=== PATIENT | male | born 1955 | race Caucasian/White ===

== ENCOUNTER → 2017-10-09 | Outpatient (CLI) | payer OTHER ==
[2017-10-09 10:17] LABS: ADD MAN DIFF? NO
[2017-10-09 10:24] LABS: BASO % 1 % (0-3); EOS # 0.1 x10^3/uL (0.0-0.7); EOS % 3 % (0-3); HEMATOCRIT 42.2 % (39.0-53.0); HEMOGLOBIN 14.8 g/dL (13.0-17.5); LYMPH # 1.9 x10^3/uL (1.0-4.8); LYMPH % 34 % (24-48); MEAN CORPUSCULAR HEMOGLOBIN 38 pg (25-35); MEAN CORPUSCULAR HGB CONC 35 g/dL (31-37); MONO # 0.4 x10^3/uL (0.0-1.1); MONO % 8 % (0-9); NEUT % 55 % (31-73); PLATELET COUNT 180 x10^3/uL (140-400); RED CELL DISTRIBUTION WIDTH 12.8 % (11.5-14.5); WHITE BLOOD COUNT 5.5 x10^3/uL (4.0-11.0)
[2017-10-09 10:30] LABS: MEAN CORPUSCULAR VOLUME 106 fL (79-100)
[2017-10-09 10:52] LABS: ALBUMIN 3.9 g/dL (3.4-5.0); ALBUMIN/GLOBULIN RATIO 1.1 (1.0-1.7); ALK PHOS 88 U/L (46-116); ALT (SGPT) 38 U/L (16-63); ANION GAP 6 (6-14); AST (SGOT) 31 U/L (15-37); BLOOD UREA NITROGEN 15 mg/dL (8-26); BUN/CREATININE RATIO 19 (6-20); CALCIUM 8.7 mg/dL (8.5-10.1); CARBON DIOXIDE 30 mmol/L (21-32); CHLORIDE 106 mmol/L (98-107); CHOLESTEROL 178 mg/dL (0-200); CREATININE 0.8 mg/dL (0.7-1.3); GLUCOSE 111 mg/dL (70-99); HDLC 88 mg/dL (40-60); LDLC 68 mg/dL (0-100); NON-HDL CHOLESTEROL 90 mg/dL (0-129); POTASSIUM 4.5 mmol/L (3.5-5.1); SODIUM 142 mmol/L (136-145); TOTAL BILIRUBIN 0.7 mg/dL (0.2-1.0); TOTAL PROTEIN 7.4 g/dL (6.4-8.2); TRIGLYCERIDES 110 mg/dL (0-150); VLDLC 22 mg/dL (0-40)
[2017-10-09 12:31] LABS: PROSTATE SPECIFIC ANTIGEN 0.33 ng/mL (0.00-4.00)
== END | disposition home or self-care (01) ==
LOC: LAB 10:08
DX: Z12.5 Encounter for screening for malignant neoplasm of prostate (principal); E78.5 Hyperlipidemia, unspecified
CPT/HCPCS: 36415; 80053; 80061; 85025; G0103

== ENCOUNTER → 2018-05-21 | Outpatient (CLI) | payer OTHER ==
[2018-05-21 10:32] LABS: ALBUMIN 3.4 g/dL (3.4-5.0); ALBUMIN/GLOBULIN RATIO 0.9 (1.0-1.7); CALCIUM 9.3 mg/dL (8.5-10.1); CREATININE 0.7 mg/dL (0.7-1.3); GFR 113.9; POTASSIUM 4.2 mmol/L (3.5-5.1); TOTAL BILIRUBIN 0.4 mg/dL (0.2-1.0); TOTAL PROTEIN 7.1 g/dL (6.4-8.2)
[2018-05-21 10:36] LABS: BASO # 0.1 x10^3/uL (0.0-0.2); BASO % 1 % (0-3); EOS # 0.2 x10^3/uL (0.0-0.7); EOS % 3 % (0-3); HEMATOCRIT 41.3 % (39.0-53.0); HEMOGLOBIN 14.7 g/dL (13.0-17.5); LYMPH # 1.8 x10^3/uL (1.0-4.8); LYMPH % 34 % (24-48); MEAN CORPUSCULAR HEMOGLOBIN 38 pg (25-35); MEAN CORPUSCULAR HGB CONC 36 g/dL (31-37); MEAN CORPUSCULAR VOLUME 108 fL (79-100); MONO # 0.4 x10^3/uL (0.0-1.1); MONO % 9 % (0-9); NEUT # 2.8 x10^3uL (1.8-7.7); NEUT % 53 % (31-73); PLATELET COUNT 193 x10^3/uL (140-400); RED BLOOD COUNT 3.84 x10^6/uL (4.30-5.70); RED CELL DISTRIBUTION WIDTH 12.7 % (11.5-14.5); WHITE BLOOD COUNT 5.2 x10^3/uL (4.0-11.0)
[2018-05-21 10:39] LABS: CHOLESTEROL/HDL RATIO 1.9
== END | disposition home or self-care (01) ==
LOC: LAB 09:37
PROVIDERS: ATTEND Internal Medicine
DX: E78.5 Hyperlipidemia, unspecified (principal); N52.9 Male erectile dysfunction, unspecified; R63.4 Abnormal weight loss
CPT/HCPCS: 80053; 80061; 84443; 85025; 85651

== ENCOUNTER → 2018-06-05 | Day surgery (SDC) | payer OTHER ==
[~2018-06-05] MED LIST: ASPI-630 PO; ATOR40TA59 PO; IV RINGERS,LACTATED 1000ML 1,000 ML IV SCH; PROPOFOL 40 ML IV ONE; PROPOFOL 60 ML IV ONE
[2018-06-05 10:45] VITALS: BP 146/71
--- NOTE | 2018-06-06 16:11 | PATHOLOGY ---
[facility] Accession Number: [id number] . 01 Material submitted: . PART A: SIGMOID POLYP PART B: RANDOM COLON BIOPSY PART C: TRANSVERSE COLON POLYP . 01 Clinical history: . Hx polyps . 02 Diagnosis: A. Colon biopsy, sigmoid polyp: - Tubular adenoma. . B. Colonic mucosa, random colon biopsies: - Collagenous colitis. . C. Colon biopsies, transverse colon polyp: - Tubular adenoma. . (JPM:mml; 06/06/2018) [facility]/06/06/2018 . 02 Comment: Sections of the sigmoid colon biopsy reveal a tubular adenoma showing no high grade dysplasia or evidence of malignancy. . Sections of the random colon biopsy show a mild chronic active colitis without crypt architectural distortion. Collagen is deposited around the absorptive capillary complex beneath the surface epithelium. The findings are supportive of the diagnosis of collagenous colitis. . Sections of the transverse colon biopsy reveal a tubular adenoma showing no high grade dysplasia or evidence of malignancy. . (JPM:mml; 06/06/2018) . 02 Electronically signed: . Ruslan Evans MD, Pathologist NPI- [id number] . 01 Gross description: . A. Received in formalin labeled "Alejandro Kumar, sigmoid polyp," is a single segment of jacinto soft tissue measuring 0.4 cm in maximum dimension. The specimen is entirely submitted in cassette A1. . B. Received in formalin labeled "Alejandro Kumar, random colon BX, diarrhea, rule out colitis," are multiple segments of jacinto soft tissue measuring 1.8 x 0.5 x 0.2 cm in aggregate dimensions. The specimen is filtered and entirely submitted in cassette B1. . C. Received in formalin labeled "Alejandro Kumar, transverse colon polyp," are multiple segments of jacinto soft tissue measuring 1.3 x 0.6 x 0.2 cm in aggregate dimensions. The specimen is filtered and entirely submitted in cassette C1. (TSD; 06/05/2018) TOB/TOB . 02 Pathologist provided ICD-10: D12.5, D12.3, K52.831 . 02 CPT . 274399, 839785, 015759 Specimen Comment: A courtesy copy of this report has been sent to Specimen Comment: [phone], . Specimen Comment: Report sent to / DR NIELSEN Specimen Comment: A duplicate report has been generated due to demographic updates. Performed at: 01 [facility] [address], [place] [id number] MD Aquiles Villalta MD Phone: [phone] Performed at: 02 [facility] [address] [place], [place] [id number] MD Ruslan Evans MD Phone: [phone]
== END | disposition home or self-care (01) ==
LOC: SURG 07:38
PROVIDERS: ATTEND Internal Medicine
DX: D12.5 Benign neoplasm of sigmoid colon (principal); D12.3 Benign neoplasm of transverse colon; K52.831 Collagenous colitis; K21.9 Gastro-esophageal reflux disease without esophagitis; E78.00 Pure hypercholesterolemia, unspecified; Z86.010 Personal history of colon polyps; Z72.89 Other problems related to lifestyle; F17.210 Nicotine dependence, cigarettes, uncomplicated; Z82.49 Family history of ischemic heart disease and other diseases of the circulatory system; Z83.79 Family history of other diseases of the digestive system; Z79.82 Long term (current) use of aspirin; Z79.899 Other long term (current) drug therapy; Z98.52 Vasectomy status; Z98.890 Other specified postprocedural states
CPT/HCPCS: 45380; 45381; 88305; J2704; 45385

== ENCOUNTER → 2018-07-27 | Outpatient (CLI) | payer OTHER ==
[2018-06-05 10:45] VITALS: BP 146/71
[~2018-07-27] MED LIST changes: -IV RINGERS,LACTATED 1000ML 1,000 ML IV SCH; -PROPOFOL 40 ML IV ONE; -PROPOFOL 60 ML IV ONE
--- NOTE | 2018-07-27 09:36 | RAD ---
Cervical spine, 5 views, 08/06/2018: HISTORY: Increasing neck pain C7 was not well visualized in the lateral projection due to the high position of the patient shoulders. There is mild to moderate disc space narrowing at C4-5, C5-6 and C6-7 with mild marginal spurring. There are mild degenerative changes involving scattered facet joints bilaterally. There is mild associated bilateral foraminal narrowing at C4-5 and C5-6. No fracture or subluxation is evident. Moderate calcific plaquing is present at the carotid bifurcations. IMPRESSION: 1. Mild to moderate multilevel degenerative change, greatest at the C4-5 and C5-6 levels. 2. No acute bony abnormality is detected. Electronically signed by: Akhil Levine MD (07/27/2018 9:33 AM) [facility]
== END | disposition home or self-care (01) ==
LOC: RAD 08:40
PROVIDERS: ATTEND Internal Medicine
DX: M47.812 Spondylosis without myelopathy or radiculopathy, cervical region (principal); M48.02 Spinal stenosis, cervical region
CPT/HCPCS: 72050

== ENCOUNTER → 2018-08-21 | Day surgery (SDC) | payer OTHER ==
[~2018-08-21] MED LIST changes: +IV RINGERS,LACTATED 1000ML 1,000 ML IV SCH; +LIDOCAINE 2% PF 5 ML VIAL. ONE; +PROPOFOL 40 ML IV ONE
[2018-08-21 09:45] VITALS: BP 120/79
--- NOTE | 2018-08-22 15:07 | PATHOLOGY ---
[facility] Accession Number: [id number] . 01 Material submitted: . PART A: ASCENDING POLYP PART B: POST POLYPECTOMY AREA BX PART C: SIGMOID POLYP PART D: DISTAL SIGMOID BIOPSY . 01 Clinical history: . History of polyps . 02 Diagnosis: A. Colon biopsies, ascending colon polyp: - Tubular adenoma. . B. Colon biopsies, post polypectomy area biopsy: - Tubular adenoma, focal. . C. Colon biopsies, sigmoid polyp: - Tubular adenomas. . D. Colon biopsy, distal sigmoid colon: - No significant pathologic abnormalities. . (JPM:mml; 08/22/2018) [facility]/08/22/2018 . 02 Comment: Sections of the ascending colon biopsy reveal a tubular adenoma showing no high grade dysplasia or evidence of malignancy. Sections of the post polypectomy area biopsy reveal focal residual tubular adenoma. There is no high grade dysplasia or evidence of malignancy. Sections of the sigmoid colon biopsy reveal tubular adenomas showing no high grade dysplasia or evidence of malignancy. Sections of the distal sigmoid colon biopsy show congestion and focal recent hemorrhage. There is no evidence of a chronic destructive colitis, ischemic colitis, or microscopic colitis. . (JPM:mml; 08/22/2018) . 02 Electronically signed: . Ruslan Evans MD, Pathologist NPI- [id number] . 01 Gross description: . A. The specimen is received in formalin, labeled "Alejandro Kumar, ascending polyp", are multiple jacinto soft tissues measuring 0.7 x 0.5 x 0.2 cm in aggregate, entirely submitted in A1. . B. The specimen is received in formalin, labeled "Alejandro Kumar, post-polypectomy area, biopsy", are multiple jacinto, mucosal fragments measuring 0.5 x 0.5 x 0.1 cm in aggregate, entirely submitted in B1. . C. The specimen is received in formalin, labeled "Bernake, Alejandro, sigmoid polyp", are 2 jacinto soft tissues measuring 0.7 x 0.3 x 0.2 cm in aggregate, entirely submitted in C1. . D. The specimen is received in formalin, labeled "Yuetzke, Alejandro, distal sigmoid, biopsy", is a jacinto, mucosal tissue measuring 0.3 cm in greatest dimension, entirely submitted in D1. ([facility]; 08/21/2018) [facility] . 02 Pathologist provided ICD-10: D12.2, D12.6, D12.5 . 02 CPT . 078249, 094706, 993747, 452242 Specimen Comment: A courtesy copy of this report has been sent to Specimen Comment: [phone], . Specimen Comment: Report sent to / DR NILESEN Performed at: 01 [facility] [address] [facility] [address], [place] [id number] MD Aquiles Villalta MD Phone: [phone] Performed at: 02 [facility] [address] [place], [place] [id number] MD Ruslan Evans MD Phone: [phone]
== END | disposition home or self-care (01) ==
LOC: SURG 07:07
PROVIDERS: ATTEND Internal Medicine
DX: Z09 Encounter for follow-up examination after completed treatment for conditions other than malignant neoplasm (principal); D12.2 Benign neoplasm of ascending colon; D12.5 Benign neoplasm of sigmoid colon; Z86.010 Personal history of colon polyps; K63.89 Other specified diseases of intestine; K21.9 Gastro-esophageal reflux disease without esophagitis; E78.00 Pure hypercholesterolemia, unspecified; Z83.79 Family history of other diseases of the digestive system; Z72.89 Other problems related to lifestyle; Z79.82 Long term (current) use of aspirin; Z79.899 Other long term (current) drug therapy; Z98.52 Vasectomy status; Z98.890 Other specified postprocedural states; F17.210 Nicotine dependence, cigarettes, uncomplicated; Z96.642 Presence of left artificial hip joint
CPT/HCPCS: 45380; 88305; J2001; J2704